=== PATIENT | male | born 1990 | race African-American/Black ===

== ENCOUNTER 2016-03-27 09:23 | Emergency (ER) | payer OTHER ==
[2016-03-27] MEDS ORDERED: TORAdol 30 mg Injection IM ONE (09:46)
[2016-03-27] MEDS ORDERED: Norflex 60 MG/2 ML IM ONE (09:46)
[2016-03-27] MEDS ORDERED: TORAdol 30 mg Injection ONE (09:55)
[2016-03-27] MEDS ORDERED: Norflex 60 MG/2 ML ONE (09:55)
--- NOTE | 2016-03-27 10:05 | ERPHSYRPT ---
- History of Present Illness Time Seen by Provider: 03/27/16 09:28 Source: patient Patient Subjective Stated Complaint: Pt woke up yesterday morning with severe pain in his left shoulder and left side of neck. Does not recall any injury. After doing some work yesterday it eased some but this morning he woke up and it was severe again. Triage Nursing Assessment: Pt alert and oriented x3. skin pink warm and dry. afebrile. no obvious deformity noted. no swelling noted. left radial pulse present and regular. sensation intact Physician History: CC: neck pain and shoulder pain Hx: 25 y/o healthy male recently moved here from [place]. He awoke yesterday with pain in the neck and left shoulder. The muscles hurt. No specific injury. Was working with a friend yesterday and in evening it was worse. No N/T/W. No prior injury. Hurts to move the left shoulder. 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 No allergies. Pain is severe with movement. Timing/Duration: yesterday Severity: severe Allergies/Adverse Reactions: No Known Drug Allergies Allergy (Unverified 03/27/16 09:32) Hx Tetanus, Diphtheria Vaccination/Date Given: Yes Hx Influenza Vaccination/Date Given: No Immunizations Up to Date: Yes - Review of Systems Constitutional: No Fever, No Chills Eyes: No Symptoms Ears, Nose, & Throat: No Symptoms Respiratory: No Dyspnea Cardiac: No Chest Pain Abdominal/Gastrointestinal: No Abdominal Pain Musculoskeletal: Neck Pain, Joint Pain (left shoulder), No Back Pain Skin: No Rash Neurological: No Focal Weakness, No Headache, No Parasthesia - Past Medical History Pertinent Past Medical History: Yes Psycho-Social History: Depression - Past Surgical History Past Surgical History: No - Social History Smoking Status: Current every day smoker Drug Use: none Patient Lives Alone: Yes - Nursing Vital Signs Nursing Vital Signs: Initial Vital Signs Temperature 98.2 F Temperature Source Oral Pulse Rate 65 Respiratory Rate 16 Blood Pressure [Right Arm] 124/72 Pain Intensity 10 - Physical Exam General Appearance: alert, other (muscular man leaning with neck in apparent spasms) Eye Exam: PERRL/EOMI Ears, Nose, Throat Exam: normal ENT inspection, moist mucous membranes Neck Exam: other (tender left paraspinous muscles and left shoudler girdle musculature), No midline tenderness Respiratory Exam: normal breath sounds, lungs clear, No respiratory distress Cardiovascular Exam: regular rate/rhythm Back Exam: normal inspection Extremity Exam: normal inspection, limited range of motion (left shoulder) Neurologic Exam: alert, oriented x 3, cooperative, sensation nml, No motor deficits Skin Exam: warm, dry, No rash SpO2 Interpretation: normal SpO2: 97 Oxygen Delivery: Room Air - Course Nursing assessment & vital signs reviewed: Yes - Radiology Exams cervical, shoulder left X-ray Interpretation: Discussed w/ radiologist, No Fracture, No Subluxation Ordered Tests: Active Orders 24 hr Category Date Time Status CERVICAL SPINE (2 OR 3 VIEW) Stat Exams 03/27/16 09:46 Completed SHOULDER Stat Exams 03/27/16 09:47 Completed Medication Summary Discontinued Medications Generic Name Dose Route Start Last Admin Trade Name Fernandoq PRN Reason Stop Dose Admin Ketorolac Tromethamine 60 mg 03/27/16 09:46 03/27/16 10:19 Toradol 30 Mg Injection IM 03/27/16 09:47 60 mg STAT ONE Administration Ketorolac Tromethamine Confirm 03/27/16 09:55 Toradol 30 Mg Injection Administered 03/27/16 09:56 Dose 60 mg .ROUTE .STK-MED ONE Orphenadrine Citrate 60 mg 03/27/16 09:46 03/27/16 10:20 Norflex 60 Mg/2 Ml IM 03/27/16 09:47 60 mg STAT ONE Administration Orphenadrine Citrate Confirm 03/27/16 09:55 Norflex 60 Mg/2 Ml Administered 03/27/16 09:56 Dose 60 mg .ROUTE .STK-MED ONE - Progress Progress Note: 03/27/16 10:31 IM Toradol and norflex given. Spasm and sprain instr given. Counseled pt/family regarding: diagnosis, need for follow-up, rad results - Departure Time of Disposition: 10:32 Departure Disposition: Home Clinical Impression: left cervical paraspinous muscle strain Condition: Stable Critical Care Time: No Referrals: DOCTOR,NO FAMILY [Primary Care Provider] - Instructions: Cervical Strain Additional Instructions: CERVICAL (NECK) STRAIN 1. Take medication as prescribed for discomfort. 2. Use warm compresses for 1-2 days on the affected area. 3. Follow up with your family physician if not improved in 2-3 days. 4. You should call your family physician or return to the emergency department for any numbness, tingling, or weakness of the arms or legs. Rx motrin. Rx norflex for muscle relaxer- no driving or operating machinery today or while taking. Follow up with a family a family doctor. Prescriptions: Ibuprofen 600 mg PO Q6H PRN PRN #24 tablet PRN Reason: Pain Orphenadrine Citrate 100 mg [Norflex 100 MG Tablet] 1 tab PO BID #10 tab
--- NOTE | 2016-03-27 10:27 | XRAY ---
Indication: Left shoulder pain. No known injury. Comparison: None 3 views of the left shoulder demonstrates normal bones, articulation, and soft tissues.
--- NOTE | 2016-03-27 10:29 | XRAY ---
Indication: Left neck pain. No known injury. Comparison: None 3 views of the cervical spine demonstrate lordotic straightening, mild C6-C7 degenerative endplate spurring, and prominent C7 transverse processes. No other bony, articular, or soft tissue abnormalities.
[2016-03-27 10:33] VITALS: O2SAT 97
[2016-03-27 10:51] VITALS: BP 124/76; PULSE 67
== END 2016-03-27 10:54 | disposition home or self-care (01) ==
LOC: ED 09:23
DX: S16.1XXA Strain of muscle, fascia and tendon at neck level, initial encounter (principal); M54.2 Cervicalgia; M25.512 Pain in left shoulder
CPT/HCPCS: 72040; 73030; 96372; 99283; 99284; J1885; J2360